=== PATIENT | female | born 1980 | race Caucasian/White ===

== ENCOUNTER 2016-10-12 19:28 | Emergency (ER) | payer OTHER, BC ==
[~2016-10-12 19:28] MED LIST: HYDR10TA2 PO; MOME17SP NS; MONT10TA6 PO
[2016-10-12 19:54] VITALS: BP 110/60
[2016-10-12] MEDS ORDERED: ORPH100T PO (20:31)
[2016-10-12] MEDS ORDERED: NAPR550T PO (20:31)
[2016-10-12] MEDS ORDERED: HYDR-971 PO (20:31)
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
== END 2016-10-12 20:50 | disposition home or self-care (01) ==
LOC: ER 19:28
DX: S16.1XXA Strain of muscle, fascia and tendon at neck level, initial encounter (principal); S39.012A Strain of muscle, fascia and tendon of lower back, initial encounter; S46.911A Strain of unspecified muscle, fascia and tendon at shoulder and upper arm level, right arm, initial encounter; Z88.1 Allergy status to other antibiotic agents; Z88.8 Allergy status to other drugs, medicaments and biological substances; V49.9XXA Car occupant (driver) (passenger) injured in unspecified traffic accident, initial encounter; Y92.413 State road as the place of occurrence of the external cause; Y93.89 Activity, other specified; Y99.8 Other external cause status
CPT/HCPCS: 99283

== ENCOUNTER → 2017-01-21 | Outpatient (CLI) | payer BC ==
[~2017-01-21] MED LIST changes: +HYDR-971 PO; +NAPR550T PO; +ORPH100T PO
--- NOTE | 2017-01-21 13:32 | KCIC ---
MR of the right knee Indication: Acute pain for over 2 weeks. Medial pain and tenderness. No known injury. Technique: The standard multiplanar sequences are obtained. Findings: Medial meniscus: Mild signal in the posterior horn with mild undersurface violation on sagittal slices compatible with tear. Lateral meniscus: Intact. Anterior cruciate ligament: Intact Posterior cruciate ligament: Intact Medial collateral ligament: Mild proximal scarring. Iliotibial band: Intact. Posterolateral structures: Fibular collateral ligament, biceps tendon and popliteus tendon are intact. Extensor mechanism: Intact. Fluid: Small Schmitz's cyst. Trace joint fluid. Articular cartilage -patellofemoral joint: Moderate chondromalacia, particularly at the medial patella. -medial compartment: No acute defect. -lateral compartment: No acute defects. Bones: No significant lesion or acute fracture. Soft tissue: Unremarkable Impression: 1. Medial meniscal tear. 2. Chondromalacia at the patella. Electronically signed by: Chapincito Narayanan MD (01/21/2017 1:29 PM)
== END | disposition home or self-care (01) ==
LOC: KCIC MRI 12:11
PROVIDERS: ATTEND Family Medicine
DX: S83.241A Other tear of medial meniscus, current injury, right knee, initial encounter (principal); M94.261 Chondromalacia, right knee; M71.21 Synovial cyst of popliteal space [Baker], right knee; X58.XXXA Exposure to other specified factors, initial encounter; Y93.89 Activity, other specified; Y92.89 Other specified places as the place of occurrence of the external cause; Y99.8 Other external cause status
CPT/HCPCS: 73721

== ENCOUNTER → 2018-11-06 | Outpatient (CLI) | payer BC ==
[2017-02-19 10:15] VITALS: BP 85/43
[~2018-11-06] MED LIST changes: +BREO ELLIPTA 21 EACH IH; +CETI10TA22 PO; +CYCL10TA2 PO; +DICL75TA PO; +DOCU-109 PO; +DOXY100T PO; +FLUT16SP NS; +HYDR-2765 PO; +HYDR-3164 PO; -HYDR-971 PO; +MONT10TA9 PO; +NAPR-514 PO; +NAPR-682 PO; -NAPR550T PO; +ONDA4TAB10 SL; +OXYC10TA PO; +PROAIR RESPICL90 MCG IH; +SERT50TA PO; +TRIA10.8 NS; +VENTOLIN HFA18 GM INH
--- NOTE | 2018-11-06 15:10 | KCIC ---
Examination: MRI of the left knee without contrast HISTORY: History of left knee pain COMPARISON: None available FINDINGS: The anterior cruciate ligament, posterior cruciate ligament appear intact. There is horizontal increased signal likely horizontal cleavage tear of the body and posterior horn of the medial meniscus with the tear extending to the inferior articular surface of the posterior horn of the medial meniscus. There is a tiny meniscal cyst identified medial and inferior to the medial meniscus measuring 3 mm. The lateral meniscus appears intact. The medial collateral ligament is intact. The lateral collateral ligamentous complex including the fibular collateral ligament, biceps femoris tendon, popliteus tendon appear intact. The extensor mechanism is intact. The medial retinaculum, lateral retinaculum appear intact. Small knee joint effusion is identified. There is a small popliteal cyst. Minimal superficial fraying of cartilage in the medial, lateral, patellofemoral compartments. IMPRESSION: 1. Medial meniscal tear. 2. Small knee joint effusion with a small popliteal cyst. 3. Grade I chondromalacia medial, lateral, patellofemoral compartments. Electronically signed by: Sunny Wick MD (11/06/2018 3:07 PM) [facility]
== END | disposition home or self-care (01) ==
LOC: KCIC MRI 12:47
PROVIDERS: ATTEND Family Medicine
DX: S83.242A Other tear of medial meniscus, current injury, left knee, initial encounter (principal); M25.462 Effusion, left knee; M71.22 Synovial cyst of popliteal space [Baker], left knee; M22.42 Chondromalacia patellae, left knee; X58.XXXA Exposure to other specified factors, initial encounter; Y93.89 Activity, other specified; Y92.89 Other specified places as the place of occurrence of the external cause; Y99.8 Other external cause status
CPT/HCPCS: 73721

== ENCOUNTER 2018-12-14 08:50 | Day surgery (SDC) | payer BC ==
[~2018-12-14] VITALS: Ht 156.2 cm; Wt 68.9 kg
[~2018-12-14 08:50] MED LIST changes: -HYDR-2765 PO; +HYDROmorphone 2 MG/ML VIAL IV PRN; +IV RINGERS,LACTATED 1000ML 1,000 ML IV SCH; +LIDOCAINE 1% PF 2 ML VIAL. ID PRN; +MORPHINE SULFATE 2 MG/ML VIAL. IV PRN; +ONDANSETRON PF 4 MG/2 ML VIAL. IV PRN; +PROCHLORPERAZINE 10 MG/2 ML VIAL. IV PRN; +fentaNYL PF VIAL 100 MCG/2 ML VIAL IV PRN
[2018-12-14] MEDS ORDERED: EPINEPHrine VIAL 30 MG/30 ML VIAL ONE (08:51)
[2018-12-14] MEDS ORDERED: BUPIVACAINE MPF 0.5% 30 ML VIAL. ONE (08:52)
[2018-12-14] MEDS ORDERED: LIDOCAINE 1% PF 30 ML VIAL. ONE (08:52)
[2018-12-14] MEDS ORDERED: fentaNYL PF VIAL 100 MCG/2 ML VIAL ONE (08:54)
[2018-12-14] MEDS ORDERED: DEXAMETHASONE SOD PHOS 4 MG/ML VIAL ONE ×3 (08:54→10:09)
[2018-12-14] MEDS ORDERED: KETOROLAC 30 MG/ML INJ FOR OR. INJ ONE (08:54)
[2018-12-14] MEDS ORDERED: MIDAZOLAM HCL/PF 2 MG/2 ML VIAL. ONE (08:54)
[2018-12-14] MEDS ORDERED: FAMOTIDINE 20 MG/2 ML VIAL ONE (08:54)
[2018-12-14] MEDS ORDERED: PROPOFOL 20 ML IV ONE (08:54)
[2018-12-14] MEDS ORDERED: ONDANSETRON PF 4 MG/2 ML VIAL. ONE (08:54)
[2018-12-14] MEDS ORDERED: LIDOCAINE 2% PF 5 ML VIAL. ONE (08:54)
--- NOTE | 2018-12-14 09:25 | DISCH ---
DISCHARGE INSTRUCTIONS Condition on Discharge Condition on Discharge: Stable Activity After Discharge Activity Instructions for Disc: Activity as tolerated Bathing Instructions: Shower-keep dressing dry Weight Bearing Status after Di: As tolerated Diet after Discharge Diet after Discharge: Regular Wound Incision Care Wound/Incision Care: Ice to area for comfort, Keep wound/cast CDI, Change dressing Contacting the DRLuci after DC Call your doctor for: Concerns you may have Follow-Up Follow up with: Nicole in 2 wks ROMAIN BENITEZ II, MD December 14, 2018 09:25
[2018-12-14 09:51] LABS: U PREG PATIENT NEGATIVE (NEG)
[2018-12-14] MEDS ORDERED: GLYCOPYRROLATE 1 MG/5 ML VIAL. ONE (10:24)
[2018-12-14] MEDS ORDERED: diphenhydrAMINE 50 MG/ML VIAL ONE (10:28)
[2018-12-14] MEDS ORDERED: SEVOFLURANE 31 TO 60 MINUTES. IH ONE (10:41)
--- NOTE | 2018-12-14 10:57 | PDOC4 ---
Operative Note Operative Note Date of procedure: 12/14/18 Surgeon: Cristhian Acevedo.: Rock Austin APRN Preoperative diagnosis: left knee medial meniscal tear Postoperative diagnosis: left knee medial meniscal tear Procedure performed: left knee arthroscopy, partial medial meniscectomy Anesthesia: Gen. Tourniquet Time: 30 min Blood loss: 5mL Findings:#1 unremarkable cartilage at patellofemoral articulation #2 cartilage was without pathology and medial compartment #3 complex white zone medial meniscus tear at posterior body #4 intact cruciate ligaments #5 No loose bodies #6 Normal cartilage at lateral femoral condyle, cartilage was soft but intact at lateral tibial plateau, lateral meniscus was without pathology Reason for procedure: Patient is very pleasant individual who had seen and evaluated in my outpatient orthopedic surgery clinic for complaints of medial knee pain that had failed conservative therapies. Clinical and radiographic examination was consistent with the preoperative diagnosis and we had a discussion of the risks, benefits, and alternatives to the above surgery and the patient wished to proceed. Description of procedure: Patient was greeted in the preoperative holding area by myself for the correct extremity was verified and marked. There were taken back to the operative suite, antibiotic started as they were brought back. Once in the operating room, the patient was transferred gently supine to the operative room table and secured the bed with all pressure points padded and underwent successful induction of a general anesthetic. After this, we applied a nonsterile tourniquet to the operative thigh and taped in place. A padded bump was secured to bed laterally at the hip and a padded rest across the foot of the bed to maintain the knee at 90 passively. Examination under anesthesia demonstrated a knee that was stable to varus and valgus in extension and 30 of flexion and had full range of motion. After this, the operative extremity was prepped and draped in our usual sterile fashion and we conducted our standard preoperative timeout. I palpated and marked surface anatomy and sergio lines my planned anterolateral and anteromedial portals. The extremity was exsanguinated with an Esmarch and tourniquet insufflated to 250 mmHg. I then incised skin for my anterolateral arthroscopic portal and introduced the blunt arthroscopic trocar into the suprapatellar pouch followed by the camera. I conducted my diagnostic arthroscopy with above noted findings and upon entering the medial compartment used a spinal needle to localize the anteromedial portal. I incised skin in accordance with this and dilated this well. I introduce my probe and continued on with my diagnostic arthroscopy. I took down a little bit of the ligamentum anteriorly for visualization. I then inspected the lateral compartment of the [id number] position. After this, I redirected my attention to the medial compartment and using combination of shaver and arthroscopic biter I trimmed the meniscus tear back to stable edges. I then inspected the medial and lateral gutters and lateral compartment again to ensure I did not leave any loose debris behind. After this, I placed the camera and shaver into the suprapatellar pouch and performed repeated aspiration maneuvers with vigorous palpation posteriorly to help ensure I removed any loose debris. I then removed all excess arthroscopic fluid and the arthroscopic instrumentation. Local anesthetic was injected around the periportal incisional areas. Skin was closed with simple interrupted 3-0 nylon. Xeroform, gauze, and ABD Sof-Rol and Robert wrap were then applied to the patients left lower leg and knee. She tolerated surgery well. No complications. At the conclusion of the surgery, she was awakened from anesthesia and transferred gently supine to the recovery room cart and taken to PACU in a stable and extubated condition. Postoperative plan is to discharge her home, she can weight-bear as tolerated. Wound care was discussed with her and her significant other as well as given and written form. I will see her back in 2 weeks, sooner should a problem arise. CRISTHIAN BENITEZ II, MD December 14, 2018 10:57
[2018-12-14] MEDS: fentaNYL PF VIAL 100 MCG/2 ML VIAL IV PRN ×3 (11:09→11:48)
[2018-12-14] MEDS ORDERED: HYDR-2765 PO (11:31)
[2018-12-14] MEDS ORDERED: HYDROcodone/APAP 7.5/325MG 1 TAB TABLET PO ONE (12:00)
[2018-12-14 12:20] VITALS: BP 109/57
== END 2018-12-14 12:50 | disposition home or self-care (01) ==
LOC: SURG 08:50
PROVIDERS: ATTEND Orthopaedic Surgery Sports Medicine
DX: S83.232A Complex tear of medial meniscus, current injury, left knee, initial encounter (principal); F32.9 Major depressive disorder, single episode, unspecified; J45.909 Unspecified asthma, uncomplicated; X58.XXXA Exposure to other specified factors, initial encounter; Y93.89 Activity, other specified; Y92.89 Other specified places as the place of occurrence of the external cause; Y99.8 Other external cause status; Z98.890 Other specified postprocedural states; Z98.51 Tubal ligation status; Z88.1 Allergy status to other antibiotic agents; Z88.8 Allergy status to other drugs, medicaments and biological substances
CPT/HCPCS: 29881; 81025; A7015; C1782; J0171; J0690; J0780; J1100; J1200; J1885; J2001; J2250; J2405; J2704; J3010; J3490; J7120

== ENCOUNTER 2019-07-30 19:35 | Emergency (ER) | payer BC ==
[~2019-07-30] VITALS: Ht 157.5 cm; Wt 70.3 kg
[~2019-07-30 19:35] MED LIST changes: -CETI10TA22 PO; +CETI10TA24 PO; +HYDR-2765 PO; -HYDROmorphone 2 MG/ML VIAL IV PRN; -IV RINGERS,LACTATED 1000ML 1,000 ML IV SCH; -LIDOCAINE 1% PF 2 ML VIAL. ID PRN; +MONT10TA49 PO; -MONT10TA6 PO; -MONT10TA9 PO; -MORPHINE SULFATE 2 MG/ML VIAL. IV PRN; -ONDANSETRON PF 4 MG/2 ML VIAL. IV PRN; -PROCHLORPERAZINE 10 MG/2 ML VIAL. IV PRN; -fentaNYL PF VIAL 100 MCG/2 ML VIAL IV PRN
--- NOTE | 2019-07-30 20:37 | PHYS DOC ---
Past Medical History Past Medical History: Asthma, Depression, Other Additional Past Medical Histor: seasonal allergies Past Surgical History: , Tubal ligation, Other Additional Past Surgical Histo: left foot, BILATERAL MENISCUS REPAIR Alcohol Use: None Drug Use: None Adult General Chief Complaint Chief Complaint: ABDOMINAL PAIN HPI HPI Patient is a 38 year old he male who presented to ER today for evaluation of lower abdominal pain started last night associated with nausea. Patient also complaint of pain with urination. Patient denies any chest pain, no fever. sHe denies any vaginal bleeding or discharge. All other ROS is negative unless otherwise noted in HPI Review of Systems Review of Systems See above Current Medications Current Medications Current Medications Medications (Trade) Dose Ordered Sig/Becky Start Time Stop Time Status Last Admin Dose Admin Ceftriaxone Sodium (Rocephin) 1 gm 1X ONCE 07/30/19 22:30 07/30/19 22:31 DC 07/30/19 22:27 1 GM Info (CONTRAST GIVEN -- Rx MONITORING) 1 each PRN DAILY PRN 07/30/19 21:15 08/01/19 21:14 Iohexol (Omnipaque 300 Mg/ml) 75 ml 1X ONCE 07/30/19 21:30 07/30/19 21:31 DC 07/30/19 21:33 75 ML Ondansetron HCl (Zofran) 4 mg 1X ONCE 07/30/19 20:45 07/30/19 20:46 DC 07/30/19 20:44 4 MG Sodium Chloride 1,000 ml @ 1,000 mls/hr 1X ONCE 07/30/19 20:45 07/30/19 21:44 DC 07/30/19 20:44 1,000 MLS/HR Allergies Allergies Allergies Coded Allergies Type Severity Reaction Last Updated Verified azithromycin Allergy Intermediate HIVES,DIARRHEA,NAUSEA 12/14/18 Yes citalopram Allergy Intermediate Hives 12/14/18 Yes Physical Exam Physical Exam See above Constitutional: Well developed, well nourished, no acute distress, non-toxic appearance. [] HENT: Normocephalic, atraumatic, bilateral external ears normal, oropharynx moist, no oral exudates, nose normal. [] Eyes: PERRLA, EOMI, conjunctiva normal, no discharge. [] Neck: Normal range of motion, no tenderness, supple, no stridor. [] Cardiovascular:Heart rate regular rhythm, no murmur [] Lungs & Thorax: Bilateral breath sounds clear to auscultation [] Abdomen: Bowel sounds normal, soft, there is tenderness at suprapubic area, no rebound tenderness, no masses, no pulsatile masses. [] Skin: Warm, dry, no erythema, no rash. [] Back: No tenderness, no CVA tenderness. [] Extremities: No tenderness, no cyanosis, no clubbing, ROM intact, no edema. [] Neurologic: Alert and oriented X 3, normal motor function, normal sensory function, no focal deficits noted. [] Psychologic: Affect normal, judgement normal, mood normal. [] Current Patient Data Vital Signs Vital Signs Date Time Temp Pulse Resp B/P (MAP) Pulse Ox O2 Delivery O2 Flow Rate FiO2 07/30/19 20:08 97.9 74 20 111/55 (73) 98 Room Air 97.9 Lab Values Laboratory Tests Test 07/30/19 19:40 07/30/19 20:41 Urine Collection Type Unknown Urine Color Yellow Urine Clarity Clear Urine pH 7.5 Urine Specific [place] 1.010 Urine Protein Negative mg/dL (NEG-TRACE) Urine Glucose (UA) Negative mg/dL (NEG) Urine Ketones (Stick) Negative mg/dL (NEG) Urine Blood Negative (NEG) Urine Nitrite Negative (NEG) Urine Bilirubin Negative (NEG) Urine Urobilinogen Dipstick 0.2 mg/dL (0.2 mg/dL) Urine Leukocyte Esterase Small (NEG) Urine RBC 0 /HPF (0-2) Urine WBC 5-10 /HPF (0-4) Urine Squamous Epithelial Cells Mod /LPF Urine Bacteria Few /HPF (0-FEW) Urine Mucus Slight /LPF Urine Test Negative (NEG) White Blood Count 7.8 x10^3/uL (4.0-11.0) Red Blood Count 4.22 x10^6/uL (3.50-5.40) Hemoglobin 11.8 g/dL (12.0-15.5) L Hematocrit 35.5 % (36.0-47.0) L Mean Corpuscular Volume 84 fL (79-100) Mean Corpuscular Hemoglobin 28 pg (25-35) Mean Corpuscular Hemoglobin Concent 33 g/dL (31-37) Red Cell Distribution Width 13.6 % (11.5-14.5) Platelet Count 180 x10^3/uL (140-400) Neutrophils (%) (Auto) 67 % (31-73) Lymphocytes (%) (Auto) 20 % (24-48) L Monocytes (%) (Auto) 13 % (0-9) H Eosinophils (%) (Auto) 0 % (0-3) Basophils (%) (Auto) 1 % (0-3) Neutrophils # (Auto) 5.2 x10^3/uL (1.8-7.7) Lymphocytes # (Auto) 1.5 x10^3/uL (1.0-4.8) Monocytes # (Auto) 1.0 x10^3/uL (0.0-1.1) Eosinophils # (Auto) 0.0 x10^3/uL (0.0-0.7) Basophils # (Auto) 0.1 x10^3/uL (0.0-0.2) Prothrombin Time 13.4 SEC (11.7-14.0) Prothrombin Time INR 1.1 (0.8-1.1) Activated Partial Thromboplast Time 28 SEC (24-38) Sodium Level 138 mmol/L (136-145) Potassium Level 3.7 mmol/L (3.5-5.1) Chloride Level 102 mmol/L (98-107) Carbon Dioxide Level 28 mmol/L (21-32) Anion Gap 8 (6-14) Blood Urea Nitrogen 10 mg/dL (7-20) Creatinine 0.7 mg/dL (0.6-1.0) Estimated GFR (Cockcroft-Gault) 94.2 BUN/Creatinine Ratio 14 (6-20) Glucose Level 87 mg/dL (70-99) Calcium Level 8.7 mg/dL (8.5-10.1) Total Bilirubin 0.4 mg/dL (0.2-1.0) Aspartate Amino Transferase (AST) 19 U/L (15-37) Alanine Aminotransferase (ALT) 26 U/L (14-59) Alkaline Phosphatase 69 U/L (46-116) Total Protein 7.3 g/dL (6.4-8.2) Albumin 3.5 g/dL (3.4-5.0) Albumin/Globulin Ratio 0.9 (1.0-1.7) L Lipase 154 U/L (73-393) Laboratory Tests 07/30/19 20:41 Laboratory Tests 07/30/19 20:41 EKG EKG [] Radiology/Procedures Radiology/Procedures [][facility] [address] [place] [address] IMAGING REPORT Signed PATIENT: MEENA VERDUZCOCCOUNT: [id number] : 1980 LOCATION: ER AGE: 38 SEX: F EXAM STATUS: REG ER ORD. PHYSICIAN: ZEHRA BROWNLEE DO REASON: lower abdominal pain since yesterday, OMNI 300, 75 ML IV PROCEDURE: CT ABD PELV W/ IV CONTRST ONLY CT SCAN OF THE ABDOMEN AND PELVIS WITH IV CONTRAST. History: Lower abdominal pain Comparison:None. Procedure: Contiguous axial images of the abdomen and pelvis were performed after the administration of 75 cc of Omni 300 IV contrast. Oral contrast: No. Findings: There is a 2.9 cm cyst in the right adnexa. The appendix is normal. The uterus is mildly retroverted. The colon is collapsed limiting its evaluation. Liver: Unremarkable Spleen: Unremarkable Pancreas: Unremarkable Adrenal Glands: Unremarkable Kidneys: Unremarkable There is no mass or lymphadenopathy. There is no free air. There is no free fluid. The urinary bladder appears normal. Impression: Small cyst the right adnexa is likely a right ovarian cyst. Recommend 2-3 month follow-up ultrasound. This interpretation assumes the patient is not . PQRS Compliance Statement: One or more of the following individualized dose reduction techniques were utilized for this examination: 1. Automated exposure control 2. Adjustment of the mA and/or kV according to patient size 3. Use of iterative reconstruction technique Electronically signed by: Mayuri Rivera III, MD (07/30/2019 9:44 PM) [facility] DICTATED and SIGNED BY: MAYURI RIVERA III, MD DATE: 07/30/192143 Course & Med Decision Making Course & Med Decision Making Pertinent Labs and Imaging studies reviewed. (See chart for details) [] Dragon Disclaimer Dragon Disclaimer This electronic medical record was generated, in whole or in part, using a voice recognition dictation system. Departure Departure Impression: Primary Impression: Abdominal pain Additional Impressions: UTI (urinary tract infection) Ovarian cyst Disposition: 01 HOME, SELF-CARE Condition: STABLE Referrals: YONATAN BLAKE MD (PCP) PLEASE FOLLOW UP WITH YOUR DOCTOR NEXT WEEK Patient Instructions: Abdominal Pain, Ovarian Cyst, Urinary Tract Infection Scripts Ciprofloxacin Hcl (CIPRO) 500 Mg Tablet 1 TAB PO BID for 7 Days, #14 TAB 0 Refills Prov: ZEHRA BROWNLEE DO 07/30/19 Problem Qualifiers ZEHRA BROWNLEE DO Jul 30, 2019 20:37
[2019-07-30 20:43] LABS: BILIRUBIN,URINE NEGATIVE (NEG); CLARITY,URINE CLEAR; COLOR,URINE YELLOW; NITRITE,URINE NEGATIVE (NEG); PH,URINE 7.5; PROTEIN,URINE NEGATIVE (NEG-TRACE); UROBILINOGEN,URINE 0.2 mg/dL (0.2 mg/dL)
[2019-07-30] MEDS ORDERED: IV NORMAL SALINE 1000ML BAG 1,000 ML IV ONE (20:45)
[2019-07-30] MEDS ORDERED: ONDANSETRON PF 4 MG/2 ML VIAL. IV ONE (20:45)
[2019-07-30 20:48] LABS: BASO # 0.1 x10^3/uL (0.0-0.2); BASO % 1 % (0-3); EOS % 0 % (0-3); HEMATOCRIT 35.5 % (36.0-47.0); HEMOGLOBIN 11.8 g/dL (12.0-15.5); LYMPH # 1.5 x10^3/uL (1.0-4.8); LYMPH % 20 % (24-48); MEAN CORPUSCULAR HEMOGLOBIN 28 pg (25-35); MEAN CORPUSCULAR HGB CONC 33 g/dL (31-37); MEAN CORPUSCULAR VOLUME 84 fL (79-100); MONO % 13 % (0-9); NEUT # 5.2 x10^3/uL (1.8-7.7); NEUT % 67 % (31-73); PLATELET COUNT 180 x10^3/uL (140-400); RED BLOOD COUNT 4.22 x10^6/uL (3.50-5.40); RED CELL DISTRIBUTION WIDTH 13.6 % (11.5-14.5); WHITE BLOOD COUNT 7.8 x10^3/uL (4.0-11.0)
[2019-07-30 20:48] LABS: BACTERIA,URINE FEW /HPF (0-FEW); RBC,URINE 0 /HPF (0-2); SQUAMOUS EPITHELIAL CELL,UR MOD /LPF
[2019-07-30 20:57] LABS: PROTHROMBIN TIME PATIENT 13.4 SEC (11.7-14.0)
[2019-07-30 21:00] LABS: CALCIUM 8.7 mg/dL (8.5-10.1); CREATININE 0.7 mg/dL (0.6-1.0); GFR 94.2; POTASSIUM 3.7 mmol/L (3.5-5.1)
[2019-07-30 21:07] LABS: ALBUMIN 3.5 g/dL (3.4-5.0); ALBUMIN/GLOBULIN RATIO 0.9 (1.0-1.7); TOTAL BILIRUBIN 0.4 mg/dL (0.2-1.0); TOTAL PROTEIN 7.3 g/dL (6.4-8.2)
[2019-07-30 21:08] LABS: U PREG PATIENT NEGATIVE (NEG)
[2019-07-30] MEDS ORDERED: CONTRAST GIVEN. MC PRN (21:15)
[2019-07-30] MEDS ORDERED: IOHEXOL 300 MG/ML 100ML VIAL. IV ONE (21:30)
--- NOTE | 2019-07-30 21:47 | RAD ---
CT SCAN OF THE ABDOMEN AND PELVIS WITH IV CONTRAST. History: Lower abdominal pain Comparison:None. Procedure: Contiguous axial images of the abdomen and pelvis were performed after the administration of 75 cc of Omni 300 IV contrast. Oral contrast: No. Findings: There is a 2.9 cm cyst in the right adnexa. The appendix is normal. The uterus is mildly retroverted. The colon is collapsed limiting its evaluation. Liver: Unremarkable Spleen: Unremarkable Pancreas: Unremarkable Adrenal Glands: Unremarkable Kidneys: Unremarkable There is no mass or lymphadenopathy. There is no free air. There is no free fluid. The urinary bladder appears normal. Impression: Small cyst the right adnexa is likely a right ovarian cyst. Recommend 2-3 month follow-up ultrasound. This interpretation assumes the patient is not . PQRS Compliance Statement: One or more of the following individualized dose reduction techniques were utilized for this examination: 1. Automated exposure control 2. Adjustment of the mA and/or kV according to patient size 3. Use of iterative reconstruction technique Electronically signed by: Silviano Rivera III, MD (07/30/2019 9:44 PM) [facility]
[2019-07-30 22:25] VITALS: BP 112/61
[2019-07-30] MEDS ORDERED: cefTRIAXone IV Push 1 GM VIAL. IVP ONE (22:30)
[2019-07-30] MEDS ORDERED: CIPR500T94 PO (22:49)
== END 2019-07-30 23:01 | disposition home or self-care (01) ==
LOC: ER 19:35
DX: N39.0 Urinary tract infection, site not specified (principal); R11.2 Nausea with vomiting, unspecified; R10.30 Lower abdominal pain, unspecified; N83.201 Unspecified ovarian cyst, right side; J45.909 Unspecified asthma, uncomplicated; Z98.51 Tubal ligation status; Z88.1 Allergy status to other antibiotic agents; Z88.8 Allergy status to other drugs, medicaments and biological substances
CPT/HCPCS: 36415; 74177; 80053; 81001; 81025; 83690; 85025; 85610; 85730; 87086; 96361; 96374; 96375; 99285; J0696; J2405; J7030; Q9967

== ENCOUNTER → 2019-08-30 | Outpatient (CLI) | payer BC ==
[~2019-08-30] MED LIST changes: +CIPR500T94 PO
--- NOTE | 2019-08-30 13:00 | KCIC ---
EXAM: Pelvic Ultrasound Complete INDICATION: Right ovarian cyst. Follow-up abnormal findings on CT ? TECHNIQUE: Real-time ultrasound of the pelvis with permanent freeze-frame documentation. COMPARISON:?None. ? FINDINGS: ? UTERUS:?Uterus is retroverted and measures 7.1 x 4.3 x 4.7 cm.? Endometrial thickness is 0.7 cm. No uterine or endometrial abnormality. ? RIGHT OVARY/ADNEXA: Right ovary measures 3.7 x 2.8 x 3.0 cm.? Unremarkable. Normal ovarian blood flow. LEFT OVARY/ADNEXA:?Left ovary is not well seen.? OTHER:?No evidence of significant pelvic free fluid. ? IMPRESSION: ? The dominant right ovarian cyst has since resolved. There is no evidence of right ovarian torsion. The left ovaries not well seen. The pelvic ultrasound is otherwise unremarkable. Electronically signed by: Michelle Clarke MD (08/30/2019 12:56 PM) [facility]
== END | disposition home or self-care (01) ==
LOC: KCIC US 09:33
PROVIDERS: ATTEND Family Medicine
DX: N85.4 Malposition of uterus (principal); N32.1 Vesicointestinal fistula
CPT/HCPCS: 76830; 76856

== ENCOUNTER → 2020-08-01 | Outpatient (CLI) | payer BC ==
[~2020-08-01] MED LIST changes: +ASPI325T8 PO; -CETI10TA24 PO; +CETI10TA74 PO; +CYCL5TAB PO; +LEVO5TAB29 PO; +PROM25TA10 PO
--- NOTE | 2020-08-01 15:51 | KCIC ---
EXAM: Right elbow, 3 views. HISTORY: Epicondylitis. COMPARISON: None. FINDINGS: 3 views of the right elbow are obtained. There is no fracture, dislocation or subluxation. There is no effusion. IMPRESSION: No acute osseous finding. Electronically signed by: Ester Montez MD (08/01/2020 3:49 PM) [id number]
== END ==
LOC: KCIC 15:22
PROVIDERS: ATTEND Family Medicine
DX: M77.11 Lateral epicondylitis, right elbow (principal)
CPT/HCPCS: 73080

== ENCOUNTER → 2020-09-26 | Outpatient (CLI) | payer BC ==
[~2020-09-26] MED LIST changes: -ASPI325T8 PO; -PROM25TA10 PO
== END ==
LOC: LAB 11:39
PROVIDERS: ATTEND Orthopaedic Surgery
DX: Z01.812 Encounter for preprocedural laboratory examination (principal); Z20.822 Contact with and (suspected) exposure to COVID-19
CPT/HCPCS: U0003

== ENCOUNTER 2020-09-29 12:11 | Day surgery (SDC) | payer BC ==
[~2020-09-29] VITALS: Ht 154.9 cm; Wt 73.9 kg
[~2020-09-29 12:11] MED LIST changes: +HYDROmorphone 2 MG/ML VIAL IVP PRN; +IV RINGERS,LACTATED 1000ML 1,000 ML IV SCH; +PROCHLORPERAZINE 10 MG/2 ML VIAL. IVP PRN; +fentaNYL PF VIAL 100 MCG/2 ML VIAL IVP PRN
[2020-09-29] MEDS ORDERED: fentaNYL PF VIAL 100 MCG/2 ML VIAL ONE ×2 (13:15→15:04)
[2020-09-29] MEDS ORDERED: MIDAZOLAM HCL/PF 2 MG/2 ML VIAL. ONE (13:27)
[2020-09-29] MEDS ORDERED: LIDOCAINE 2% PF 5 ML VIAL. ONE (13:34)
[2020-09-29] MEDS ORDERED: PROPOFOL 10 MG/ML (20ML) VIAL. IV ONE (13:34)
[2020-09-29] MEDS ORDERED: BUPIVACAINE-EPI 0.25% 30 ML VIAL KIT. ONE ×2 (13:42→13:45)
[2020-09-29] MEDS ORDERED: EPINEPHrine VIAL 30 MG/30 ML VIAL ONE (13:42)
[2020-09-29] MEDS ORDERED: ONDANSETRON PF 4 MG/2 ML VIAL. ONE (14:01)
[2020-09-29] MEDS ORDERED: DEXAMETHASONE SOD PHOS 4 MG/ML VIAL ONE (14:01)
[2020-09-29] MEDS ORDERED: KETAMINE HCL IN NACL, ISO-OSM 50 MG/5 ML SYRINGE ONE (14:14)
--- NOTE | 2020-09-29 15:01 | PDOC4 ---
Operative Note Operative Note Date of Procedure: September 29, 2020 Preoperative Diagnosis: left knee medial meniscus tear Postoperative Diagnosis: complex tear of medial meniscus, current injury, left knee, initial encounter S83.232A Procedures Performed: left knee arthroscopy, surgical, with meniscectomy, MEDIAL, including meniscal shaving, including debridement/shaving of articular cartilage (chondroplasty) CPT 79791 Surgeon: Mayuri Salguero MD Quilting Machine Operator: CARL Fagan Anesthesia: General Estimated Blood Loss: 5 mL Specimens: none Drains: none Complications: none Tourniquet time: 26 minutes at 300 mm Hg Indications for Procedure: The patient is a 39-year-old with left knee pain, unrelieved with nonoperative treatment. She has a history of a prior meniscectomy of this same knee about 2 years ago. Despite that, herexam and MRI are consistent with a large horizontal medial meniscus tear which is an unrepairable pattern. We talked about the risks and benefits of proceeding with an arthroscopic procedure and a medial meniscectomy. We talked about potential risks of ongoing pain, progressive arthritis, bleeding, infection, blood clots, or other potential surgical or anesthetic complications. All of the patient's questions about surgery were answered and they desired to proceed. Written consent was obtained. Description of Operation: The patient was identified in the preoperative holding area. The correct left knee was marked by me. The patient was taken to the operating room, where a general anesthetic was used. Preoperative antibiotics were given intravenously. A time-out procedure was performed. A tourniquet was placed on the upper thigh. Local anesthetic 20 mL of 0.25% bupivacaine was injected using sterile technique into the knee joint. The limb was prepared circumferentially with ChloraPrep solution and sterile waterproof arthroscopy drapes were applied. The limb was exsanguinated with an Esmarch bandage and the tourniquet was inflated. Lateral and medial arthroscopy portals were established. The posterior horn of the medial meniscus showed a large and extensive primarily horizontal but also a complex tear. There was evidence of prior meniscectomy along the posterior one third of the meniscus but somewhat conservative resection. The current tear extends horizontally and in a complex fashion throughout the entire posterior one third of the meniscus. There is softening and degeneration into the middle one third of the meniscus anterior to the prior meniscectomy. Fortunately the femoral cartilage is nearly pristine on the medial femur and tibia with only slight areas of superficial softening and fibrillation of both the femur and tibia. I performed a more extensive meniscectomy then was performed previously, removing most of the posterior one third of the medial meniscus which was softened, degenerative and torn, and I tapered the resection into the middle one third of the meniscus removing soft degenerative meniscus back to a firm stable base. The medial tibiofemoral joint showed chondromalacia Outerbridge grade I, so no chondroplasty was required. The intercondylar notch was free of loose bodies, and the ACL was intact. The lateral tibiofemoral joint showed a normal lateral meniscus, so no lateral meniscectomy was required.The lateral articular surfaces showed normal articular surfaces so no chondroplasty was required. The patellofemoral joint showed normal articular surfaces so no chondroplasty was required. The suprapatellar pouch, medial and lateral gutters were free of loose bodies. Copious irrigation was used to drain all meniscal and chondral fragments, and the knee was drained of fluid. The portals were closed with #3-0 Prolene interrupted sutures. Additional local anesthetic, 30 mL of 0.25% bupivacaine with epinephrine was injected. A bulky sterile dressing was applied and the tourniquet was released. Needle and sponge counts were correct and there were no apparent complications. MAYURI SALGUERO MD Sep 29, 2020 15:01
[2020-09-29] MEDS: fentaNYL PF VIAL 100 MCG/2 ML VIAL IVP PRN ×2 (15:07→15:14)
[2020-09-29] MEDS ORDERED: MORPHINE SULFATE 2 MG/ML VIAL. ONE ×2 (15:24→15:48)
[2020-09-29] MEDS: MORPHINE SULFATE 2 MG/ML VIAL. IVP PRN ×4 (15:28→15:57)
[2020-09-29] MEDS ORDERED: ASPI325T8 PO (15:36)
[2020-09-29] MEDS ORDERED: PROM25TA10 PO (15:36)
[2020-09-29] MEDS ORDERED: HYDROcodone/APAP 7.5/325MG 1 TAB TABLET PO ONE (15:45)
[2020-09-29 16:20] VITALS: BP 114/47
== END 2020-09-29 17:15 | disposition home or self-care (01) ==
LOC: SURG 12:11
PROVIDERS: ATTEND Orthopaedic Surgery
DX: S83.232A Complex tear of medial meniscus, current injury, left knee, initial encounter (principal); J45.909 Unspecified asthma, uncomplicated; F32.9 Major depressive disorder, single episode, unspecified; Z98.890 Other specified postprocedural states; Z79.899 Other long term (current) drug therapy; Z79.82 Long term (current) use of aspirin; Z88.1 Allergy status to other antibiotic agents; Z88.8 Allergy status to other drugs, medicaments and biological substances; Z72.89 Other problems related to lifestyle; X58.XXXA Exposure to other specified factors, initial encounter; Y93.89 Activity, other specified; Y92.89 Other specified places as the place of occurrence of the external cause; Y99.8 Other external cause status
CPT/HCPCS: 29881; 81025; 97110; 97116; 97162; A4930; J0171; J0690; J1100; J2250; J2270; J2405; J2704; J3010

== ENCOUNTER 2021-03-18 13:28 | Emergency (ER) | payer BC ==
[~2021-03-18] VITALS: Ht 157.5 cm; Wt 72.0 kg
[~2021-03-18 13:28] MED LIST changes: +ASPI325T8 PO; -HYDROmorphone 2 MG/ML VIAL IVP PRN; -IV RINGERS,LACTATED 1000ML 1,000 ML IV SCH; -PROCHLORPERAZINE 10 MG/2 ML VIAL. IVP PRN; +PROM25TA10 PO; -fentaNYL PF VIAL 100 MCG/2 ML VIAL IVP PRN
[2021-03-18 16:22] VITALS: BP 109/73
[2021-03-18] MEDS ORDERED: LIDO1ADH78 TP (17:00)
[2021-03-18] MEDS ORDERED: METH-561 PO (17:00)
--- NOTE | 2021-03-18 17:01 | PHYS DOC ---
Past Medical History Past Medical History: Asthma, Depression, Other Additional Past Medical Histor: seasonal allergies, scoliosis Past Surgical History: , Tubal ligation, Other Additional Past Surgical Histo: left foot, BILATERAL MENISCUS REPAIR Smoking Status: Never Smoker Alcohol Use: None Drug Use: None General Adult EDM: Chief Complaint: BACK PAIN - NO INJURY HPI: HPI: 40-year-old female with no significant past medical history presents the ED with complaints of "I'm pretty sure it's my sciatica, I have had it before." Patient reports left-sided low back pain over her left SI joint that radiates down past her knee along the posterior aspect of her leg. Symptoms are worsened left leg and hip movement. Has taken Flexeril in the past for this with minimal relief. Also reports she had surgery over her left ankle "years ago" butt he past week, has had some swelling along the prior surgical site of her left medial ankle. States she just recently started a new job at [employer] and is on her feet a lot more than she is used to. Cannot recall any particular exacerbating movements or blood trauma that may have caused the back pain or foot swelling. Has seen a chiropractor in the past for her left-sided sciatica. Is not on any control. No history of blood clots. Denies any recent hospitalizations, surgery, cancer, or prolonged travel. Review of Systems: Review of Systems: Constitutional: Denies fever or chills. [] Eyes: Denies change in visual acuity. [] HENT: Denies nasal congestion or sore throat. [] Respiratory: Denies cough or shortness of breath. [] Cardiovascular: Denies chest pain or edema. [] GI: Denies nausea, vomiting, : Denies dysuria or hematuria Musculoskeletal: Denies joint erythema/warmth or saddle anesthesia Integument: Denies rash or diaphoresis Neurologic: Denies headache, focal weakness or sensory changes. [] Endocrine: Denies polyuria or polydipsia. [] Lymphatic: Denies swollen glands. [] Psychiatric: Denies depression or anxiety. [] Heart Score: C/O Chest Pain: No Risk Factors: Risk Factors: DM, Current or recent (<one month) smoker, HTN, HLP, family history of CAD, obesity. Risk Scores: Score 0 - 3: 2.5% MACE over next 6 weeks - Discharge Home Score 4 - 6: 20.3% MACE over next 6 weeks - Admit for Clinical Observation Score 7 - 10: 72.7% MACE over next 6 weeks - Early Invasive Strategies Allergies: Allergies: Allergies Coded Allergies Type Severity Reaction Last Updated Verified azithromycin Allergy Intermediate HIVES,DIARRHEA,NAUSEA 09/29/20 Yes citalopram Allergy Intermediate Hives 09/29/20 Yes Physical Exam: PE: Constitutional: Well developed, well nourished, no acute distress, non-toxic appearance. HENT: Normocephalic, atraumatic, Eyes: EOMI, conjunctiva normal, no discharge. Neck: Normal range of motion, supple, Cardiovascular: S1/2 present, regular rhythm Lungs & Thorax: Speaking in full sentences, bilateral equal chest rise, no tachypnea or increased work of breathing Abdomen: soft, no tenderness, Skin: Warm, dry, no erythema, no rash. [] Back: No midline tenderness, no CVA tenderness, nonreproducible left SI back pain and left buttock pain worsened with left straight leg Extremities: No tenderness, no cyanosis, very minimal swelling over right medial ankle surrounding 5 mm curved insicion site, no swelling at the ankle joint or tarsometatarsal joints, intact left DP/PT pulse, L5-S1 sensation intact, no calf swelling-equal calf sizes Neurologic: Alert and oriented X 3, normal motor function, normal sensory function, no focal deficits noted-was able to bear weight without significant distress Psychologic: Affect normal, judgement normal, mood normal. [] Current Patient Data: Labs: Laboratory Tests Test 03/18/21 13:52 POC Urine HCG, Qualitative Hcg negative (Negative) Vital Signs: Vital Signs Date Time Temp Pulse Resp B/P (MAP) Pulse Ox O2 Delivery O2 Flow Rate FiO2 03/18/21 13:54 98.2 79 16 118/58 (69) 100 Room Air 98.2 EKG: EKG: [] Radiology/Procedures: Radiology/Procedures: [] Course & Med Decision Making: Course & Med Decision Making Pertinent Labs and Imaging studies reviewed. (See chart for details) Concern for exacerbation of left-sided sciatica and mild swelling over prior surgical site. I do suspect symptoms are related to patient's increase physical activity at work -would recommend low-salt diet and hydration. No indication for imaging at this time. Will discharge home with strict ED return precautions were given for joint swelling/fevers/warmth, calf swelling, fever or chills, saddle anesthesia or incontinence. Encouraged urgent outpatient follow-up with PMD and Ortho for reevaluation as needed. Life-threatening processes were considered but are low suspicion at this time, given history, physical exam and ED workup. Pt was educated on all prescription medications and adverse effects. All patient's questions were answered and pt was stable at time of discharge. Life/limb-threatening differential includes but is not limited to, trauma (fracture, dislocation, laceration, compartment syndrome, tendon or ligament injury), neurovascular injury or deficitcva/tia, infection (osteomyelitis, abscess, cellulitis, septic arthritis, necrotizing fasciitis), deep vein thrombosis, renal/cardiac/liver disease, medication adverse effect, lymphedema/anasarca, vascular insufficiency or malignancy, I have spoken with the patient and/or caregivers. I explained the patient's condition, diagnoses and treatment plan based on the information available to me at this time. I have answered the patient and/or caregiver's questions and ad dressed any concerns. The patient and/or caregivers have a good understanding of patient's diagnosis, condition and treatment plan as can be expected at this point. Vital signs have been stable. Patient's condition is stable and appropriate for discharge from the emergency department. Patient will pursue further outpatient evaluation with primary care physician or other designated or consulting physician as outlined in the discharge instructions. The patient and/or caregivers are agreeable to this plan of care and follow-up instructions have been explained in detail. The patient and/or caregivers have received these instructions in written form and have expressed an understanding of the discharge instructions. The patient and/or caregivers are aware that any significant change of condition or worsening of symptoms should prompt immediate return to this or the closest emergency department or call to 911. Lili Disclaimer: Lili Disclaimer: This electronic medical record was generated, in whole or in part, using a voice recognition dictation system. Departure Departure Impression: Primary Impression: Left sided sciatica Additional Impression: Swelling of left foot Disposition: HOME / SELF CARE / HOMELESS Condition: STABLE Referrals: YONATAN BLAKE MD (PCP) Follow-up with your primary care physician in 24 to 48 hours OR FOLLOW UP WITH FAMILY MEDICINE: [address] [facility] [place], [facility] [address] [place] [address] Patient Instructions: Peripheral Edema, Sciatica Additional Instructions: FOLLOW UP WITH ORTHOPEDICS: FOR DEFINITIVE MANAGEMENT Orthopaedic Surgery [address] [place], [address] [place] [address] EMERGENCY DEPARTMENT GENERAL DISCHARGE INSTRUCTIONS Thank you for coming to [facility] (ED) today and trusting us with you care. We trust that you had a positive experience in our Emergency Department. If you wish to speak to the department management, you may call the Director at [phone]. YOUR FOLLOW UP INSTRUCTIONS ARE FOLLOWS: 1. Do you have a private Doctor? If you do not have a private doctor, please ask for a resource list of physicians or clinics that may be able to assist you with follow up care. 2. The Emergency Physicain has interpreted your x-rays. The X-Ray specialist will also review them. If there is a change in the findings, you will be notified in 48 hours when at all possible. 3. A lab test or culture has been done, your results will be reviewed and you will be notified if you need a change in treatment. ADDITIONAL INSTRUCTIONS AND INFORMATION: 1. Your care today has been supervised by a physician who is specially trained in emergency care. Many problems require more than one evaluation for a complete diagnosis and treatment. We recommend that you schedule your follow up appointment as recommended to ensure complete treatment of you illness or injury. If you are unable to obtain follow up care and continue to have a problem, or if your condition worsens, we recommend that you return to the ED. 2. We are not able to safely determine your condition over the phone nor are we able to give sound medical advice over the phone. For these safety reasons, if you call for medical advice we will ask you to come to the ED for further evaluation. 3. If you have any questions regarding these discharge instructions please call the ED at [phone]. SAFETY INFORMATION: In the interest of safety, wellness, and injury prevention; we encourage you to wear your sealbelt, if you smoke; quite smoking, and we encourage family to use a protective helmet for bicycling and other sporting events that present an increased risk for head injury. IF YOUR SYMPTOMS WORSEN OR NEW SYMPTOMS DEVELOP, OR YOU HAVE CONCERNS ABOUT YOUR CONDITION; OR IF YOUR CONDITION WORSENS WHILE YOU ARE WAITING FOR YOUR FOLLOW UP APPOINTMENT; EITHER CONTACT YOUR PRIMARY CARE DOCTOR, THE PHYSICIAN WHOSE NAME AND NUMBER YOU WERE GIVEN, OR RETURN TO THE ED IMMEDIATELY. Scripts Methocarbamol (METHOCARBAMOL) 500 Mg Tablet 500 MG PO QID PRN for back pain, #20 TAB Prov: ESPERANZA THAKUR DO 03/18/21 Lidocaine (Lido Jerod) 1 Each Adh..patch 1 EACH TP DAILY for 5 Days, #5 PATCH Apply 1 patch for 12 hours, remove for another 12 hours. May repeat, 1 patch per day as instructed above. Prov: ESPERANZA THAKUR DO 03/18/21 ESPERANZA THAKUR DO Mar 18, 2021 17:01
== END 2021-03-18 17:05 | disposition home or self-care (01) ==
LOC: ER 13:28
DX: M54.42 Lumbago with sciatica, left side (principal); R22.42 Localized swelling, mass and lump, left lower limb; J45.909 Unspecified asthma, uncomplicated; Z98.51 Tubal ligation status; Z88.1 Allergy status to other antibiotic agents; Z88.8 Allergy status to other drugs, medicaments and biological substances
CPT/HCPCS: 81025; 99283

== ENCOUNTER → 2021-06-07 | Outpatient (CLI) | payer BC ==
[~2021-06-07] MED LIST changes: +CYCL10TA19 PO; -CYCL10TA2 PO; +IOHEXOL 180 MG/ML 10 ML VIAL. ONE; +LIDO1ADH78 TP; +METH-561 PO; +methylPREDNISolone ACETATE 40 MG/ML VIAL. ONE; +methylPREDNISolone ACETATE 80 MG/ML VIAL. ONE
--- NOTE | 2021-06-07 12:59 | PDOC1 ---
INITIAL PAIN CONSULT DATE OF SERVICE: DOS: DATE: 06/07/21 TIME: 12:54 CHIEF COMPLAINT: Chief Complaint: Low back and left lower extremity pain HISTORY OF PRESENT ILLNESS: 40-year-old female presents history of pain for about 7 months in the low back rating left lower extremity posterior gluteus posterior lateral thigh anterior thigh anteromedial thigh medial lower leg across the knee and into the lower leg and calf medially posteriorly and laterally patient reports not the result of any specific injury or accident that she is aware of is getting worse over time she is on her feet most of her working day which exacerbates the pain patient has had chiropractic treatment as well as doing exercises from that on her own which is not helping significantly with helped initially patient reports pain is getting worse with walking and standing especially standing for prolonged periods greater than 30 minutes to an hour patient scribes pain is constant sharp in the back stabbing in the back shooting in the leg with numbness and radiating pain in the leg as well patient reports no loss of motor function but significant fatigability of the left lower extremity with changing positions walking standing. Patient reports it wakes her from sleep least 2-3 times a night does not affect her bowel bladder control but does affect her ability to walk, she is not use any assistive device to ambulate. Patient did have an MRI scan of the lumbar spine showing disc space narrowing and disc desiccation at L2-3 and L3-4 bulging annulus at L4-5 with focal left foraminal disc fusion L2-3 left foraminal extraforaminal disc protrusion at L3-4 and focal central disc protrusion at L4-5. Patient rates her disability rating 0-10 10 being the worst is a 10 with family home responsibilities recreation social activity occupation sexual behavior and self-care and 9 with life support activities. PAST MEDICAL HISTORY: PMH: No major medical problems or conditions PREVIOUS SURGERIES: Past Surgical Hx: Meniscus repair on the left x2, tubal ligation, , right meniscus repair, left foot surgery CURRENT MEDICATIONS: Current Meds: Active Scripts Medications Dose Route/Sig Max Daily Dose Days Date Category Fluticasone Propionate Nasal Linden (Fluticasone Propionate) 16 Gm Linden.susp 2 Linden NS DAILY 06/07/21 Reported Montelukast Sodium Tablet (Montelukast Sodium) 10 Mg Tablet 10 Mg PO HS 06/07/21 Reported Xyzal (Levocetirizine Dihydrochloride) 5 Mg Tablet 5 Mg PO DAILY 09/26/20 Reported Breo Ellipta 200-25 Mcg INH (Fluticasone/Vilanterol) 1 Each Blst.w.dev 1 Puff IH DAILY 12/11/18 Reported Zoloft (Sertraline Hcl) 50 Mg Tablet 100 Mg PO DAILY 02/19/17 Reported ALLERGIES; Allergies: Coded Allergies: azithromycin (Verified Allergy, Intermediate, HIVES,DIARRHEA,NAUSEA, 09/29/20) citalopram (Verified Allergy, Intermediate, Hives, 09/29/20) FAMILY HISTORY: Family Hx: Diabetes, schizophrenia, bipolar disorder SOCIAL HISTORY: Social Hx: Patient does not abby alcohol does not smoke says any illegal illicit recreational drugs is lives with her spouse and 3 children, at home lives in [facility] and works at the [employer] REVIEW OF SYSTEMS: ROS: Positive for those items mentioned in history of present illness, all systems are reviewed, otherwise negative ,and are complete full and well-documented on patient's chart. PHYSICAL EXAM: VS: Blood pressures 117/70 pulse 75 respirations 18 temperature 98.1 F height 5 feet 2 inches weight is 176 pounds PE: PHYSICAL EXAMINATION: GENERAL: The patient is awake, alert, oriented, appropriate, very pleasant in demeanor HEENT: Shows normocephalic, atraumatic. Extraocular movements are intact and symmetrical. Oral cavity: Mucous membranes moist and pink. Dentition is inta ct. NECK: Shows anterior throat supple without palpable lymphadenopathy noted. Swallow reflex symmetrical. CHEST: Shows normal on inspection. Breath sounds are clear bilaterally, distant but no rales or. HEART: Shows S1, S2 clear. No murmurs auscultated. ABDOMEN: Soft, nontender, nondistended, obese. No palpable organomegaly is noted. No rebound or guarding demonstrated. BACK: Shows spine grossly in the midline. Normal-appearing cervical lordotic curvature. There is slightly increased thoracic kyphosis, some minor flattening of the lumbar lordotic curvature. Lumbar paraspinous muscles show symmetrical on inspection, on palpation shows some moderate tenderness diffusely throughout the upper, middle and lower distribution of the paraspinous muscles bilaterally and also into the lower thoracic paraspinous musculature, firm and tender, but without specific trigger points, without radiation of pain. The patient has good rotational motion of the lumbar spine, both laterally as well as extension and flexion without significant difficulty. No tenderness over the spinous processes, sacrum or sacroiliac regions. EXTREMITIES: Lower extremities show deep tendon reflexes 2+ in the patellar and tendo calcaneus tendons. Motor exam is 5 on a scale of 5 with right d orsiflexion, extension, quadriceps and hamstring flexion and 4/5 on the left. Peripheral pulses are 1+ posterior tibial. No peripheral edema is noted bilaterally. Lower extremities are warm and dry to touch, equal in color and appearance. Straight leg raise noted to be positive on the left at approximate 40 degrees decreased with knee flexion right side is negative. Gaenslen's and Kenneth's maneuvers are negative bilaterally. The patient is able to stand, stand on her toes without significant difficulty loss of balance, walks with a normal-appearing gait is not appear to favor the right or left lower extremity significantly is not use any assistive devices to ambulate. SKIN: Shows warm and dry, good turgor. No edema. No sores, rashes or bruising throughout. IMPRESSION: Impression: 40-year-old female with approximate 7-month history increasing pain low back left lower extremity and radicular fashion MRI scan lumbar spine as noted Status post chiropractory therapy and exercise without significant reduction in pain. Plan: Options were discussed with the patient including conservative medical management continued physical therapies and interventional techniques. Patient elects interventional techniques. We discussed a lumbar epidural steroid injections description as well as anatomical models to describe the procedure. Risks were discussed including but not limited to: Bleeding, infection, possibility of epidural hematoma and subsequent neurological compromise, dural puncture, headaches, spinal cord and/or nerve damage, side effects of steroid medication, and poor results regarding pain control. Patient understands and wished to proceed. Patient will return to clinic in approximate 2 weeks for follow-up, was counseled as return appointment, activity level, and side effect to be aware of. Procedure is lumbar epidural steroid injection under local anesthetic using sterile prep and drape at the L3-4 level using C-arm fluoroscopic guidance in both AP and lateral views medications injected is 120 mg Depo-Medrol +10mL preservative-free normal saline and 2 mL contrast- condition at discharge is stable patient tolerated procedure well had no complications. THONG LOZADA MD Jun 07, 2021 12:59
--- NOTE | 2021-06-07 13:00 | PDOC4 ---
Procedure Note: ICD 10 Code: ICD 10 Code: M54.16 M51.36 M 48.06 Procedure Note: Patient was consented for lumbar epidural steroid injection with fluoroscopic guidance. Risks were discussed including but not limited to: Bleeding, infection, possibility of epidural hematoma and subsequent neurological compromise, dural puncture, headaches, spinal cord and/or nerve damage, side effects of steroid medication, and poor results regarding pain control. Patient understands and wished to proceed. Procedure is lumbar epidural steroid injection under local anesthetic using neetu rile prep and drape at the L3-4 level using C-arm fluoroscopic guidance in both AP and lateral views medications injected is 120 mg Depo-Medrol +10mL preservative-free normal saline and 2 mL contrast- condition at discharge is stable patient tolerated procedure well had no complications. THONG LOZADA MD Jun 07, 2021 13:00
== END | disposition home or self-care (01) ==
LOC: PNCL 08:24
PROVIDERS: ATTEND Anesthesiology
DX: M51.16 Intervertebral disc disorders with radiculopathy, lumbar region (principal); M48.061 Spinal stenosis, lumbar region without neurogenic claudication; M79.605 Pain in left leg; J45.909 Unspecified asthma, uncomplicated; Z98.51 Tubal ligation status; Z98.890 Other specified postprocedural states; Z79.899 Other long term (current) drug therapy; Z72.89 Other problems related to lifestyle; Z88.1 Allergy status to other antibiotic agents; Z88.8 Allergy status to other drugs, medicaments and biological substances
CPT/HCPCS: 62323; J1030; J1040; Q9965

== ENCOUNTER → 2021-06-25 | Outpatient (CLI) | payer BC ==
[~2021-06-25] MED LIST changes: -MOME17SP NS; +MOME17SP5 NS
--- NOTE | 2021-06-25 09:00 | PDOC ---
Progress Note - Pain Clinic Date of Service: DOS: DATE: 06/25/21 TIME: 08:57 Diagnosis: Dx: Lumbar radiculopathy with lumbar degenerative disease and lumbar spinal stenosis History or Present Illness: HPI: 40-year-old female returns for follow-up status post lumbar epidural steroid injection June 10, 2021. Patient did very well with about it 50% improvement overall now increasing pain the low back and the left lower extremity some on the right now as well which is new for her as well as radiating to the left anterior thigh anteromedial thigh medial lower leg medial calf as well as into the back of the knee patient reports it is a 10 on scale 10 is worse over the past week 9 on average 8 its least is an 8 today patient reports aching sharp dull tight shooting burning stabbing radiating can be constant severe worse with walking standing patient works nights and just got off of her working shift this morning with some significant pain after standing for most of the last 8 hours patient reports that is better with walking and standing as well as sleeping better but the pain still returning fairly significantly in the low back and the left lower extremity greater than right but present on the right as well in the back and right anterior thigh. Patient reports no bowel or bladder incontinence. Physical Exam: VS: Blood pressure is 130/76 pulse 96 respirations 18 temperature 98.6 F height 5 feet 2 inches weight is 171 pounds PE: PHYSICAL EXAMINATION: GENERAL: The patient is awake, alert, oriented, appropriate, very pleasant in demeanor HEENT: Shows normocephalic, atraumatic. Extraocular movements are intact and symmetrical. Oral cavity: Mucous membranes moist and pink. Dentition is intact. NECK: Shows anterior throat supple without palpable lymphadenopathy noted. Swallow reflex symmetrical. CHEST: Shows normal on inspection. Breath sounds are clear bilaterally. HEART: Shows S1, S2 clear. No murmurs auscultated. ABDOMEN: Soft, nontender, nondistended or rhonchi, obese. No palpable organomegaly is noted. BACK: Shows spine grossly in the midline. Normal-appearing cervical lordotic curvature. There is slightly increased thoracic kyphosis, some flattening of the lumbar lordotic curvature. Lumbar paraspinous muscles show symmetrical on inspection, on palpation shows some moderate tenderness diffusely throughout the upper, middle and lower distribution of the paraspinous muscles without specific trigger points, without radiation of pain. The patient has good rotational m otion of the lumbar spine, both laterally as well as extension and flexion without significant difficulty. EXTREMITIES: Lower extremities show deep tendon reflexes 2+ in the patellar and tendo calcaneus tendons. Motor exam is 5 on a scale of 5 with right dorsiflexion, extension, quadriceps and hamstring flexion and 4/5 on the left. Peripheral pulses are 1+ posterior tibial. No peripheral edema is noted bilaterally. Lower extremities are warm and dry to touch, equal in color and appearance. SKIN: Shows warm and dry, good turgor. No edema. No sores, rashes or bruising throughout. Procedure: Procedure: Options discussed with the patient. Patient chart was reviewed as her current medication regimen updated current review of systems updated today as well. We will proceed with a lumbar epidural steroid ejections today with fluoroscopic guidance. Risks were discussed including but not limited to: Bleeding, infection, possibility of epidural hematoma and subsequent neurological compromise, dural puncture, headaches, spinal cord and/or nerve damage, side effects of steroid medication, and poor results regarding pain control. Patient understands and wished to proceed. Patient will return to the clinic in approximate 2 weeks for follow-up, was counseled as to return appointment, activity level, and side effect to be aware of. Also, will add new medication of gabapentin 100 mg nightly. Patient was given instructions well side effects to be aware of with the medication. Medication Injected: Med Injected: Procedure is lumbar epidural steroid injection under local anesthetic using sterile prep and drape at the L3-4 level using C-arm fluoroscopic guidance in both AP and lateral views medications injected is 120 mg Depo-Medrol +10mL preservative-free normal saline and 2 mL contrast- condition at discharge is stable patient tolerated procedure well had no complications. Condition at Discharge: Condition at Discharge: Condition at discharge stable, patient tolerated the procedure well and had no complications. THONG LOZADA MD Jun 25, 2021 09:00
--- NOTE | 2021-06-25 09:02 | PDOC4 ---
Procedure Note: ICD 10 Code: ICD 10 Code: M54.16 M51.36 M4 8.06 Procedure Note: Patient was consented for lumbar epidural steroid injection with fluoroscopic guidance. Risks were discussed including but not limited to: Bleeding, infection, possibility of epidural hematoma and subsequent neurological compromise, dural puncture, headaches, spinal cord and/or nerve damage, side effects of steroid medication, and poor results regarding pain control. Patient understands and wished to proceed. Procedure is lumbar epidural steroid injection under local anesthetic using neetu rile prep and drape at the L3-4 level using C-arm fluoroscopic guidance in both AP and lateral views medications injected is 120 mg Depo-Medrol +10mL preservative-free normal saline and 2 mL contrast- condition at discharge is stable patient tolerated procedure well had no complications. THONG LOZADA MD Jun 25, 2021 09:02
== END | disposition home or self-care (01) ==
LOC: PNCL 08:23
PROVIDERS: ATTEND Anesthesiology
DX: M51.16 Intervertebral disc disorders with radiculopathy, lumbar region (principal); M48.061 Spinal stenosis, lumbar region without neurogenic claudication; J45.909 Unspecified asthma, uncomplicated; F32.9 Major depressive disorder, single episode, unspecified; Z79.899 Other long term (current) drug therapy; Z98.51 Tubal ligation status; Z98.890 Other specified postprocedural states; Z72.89 Other problems related to lifestyle; Z88.1 Allergy status to other antibiotic agents; Z88.8 Allergy status to other drugs, medicaments and biological substances
CPT/HCPCS: 62323; J1030; J1040; Q9965

== ENCOUNTER 2021-07-27 13:05 | Emergency (ER) | payer BC ==
[~2021-07-27] VITALS: Ht 157.5 cm; Wt 77.9 kg
[~2021-07-27 13:05] MED LIST changes: -IOHEXOL 180 MG/ML 10 ML VIAL. ONE; -methylPREDNISolone ACETATE 40 MG/ML VIAL. ONE; -methylPREDNISolone ACETATE 80 MG/ML VIAL. ONE
[2021-07-27] MEDS ORDERED: IV NORMAL SALINE 1000ML BAG 1,000 ML IV ONE (14:00)
[2021-07-27] MEDS ORDERED: KETOROLAC 30 MG/ML VIAL. IVP ONE (14:00)
[2021-07-27] MEDS ORDERED: diphenhydrAMINE 50 MG/ML VIAL IVP ONE (14:00)
[2021-07-27] MEDS ORDERED: PROCHLORPERAZINE 10 MG/2 ML VIAL. IV ONE (14:00)
[2021-07-27 14:03] LABS: BILIRUBIN,URINE NEGATIVE (NEG); CLARITY,URINE CLEAR; COLOR,URINE YELLOW; NITRITE,URINE NEGATIVE (NEG); PH,URINE 7.5 (<5.0-8.0); PROTEIN,URINE NEGATIVE (NEG-TRACE); UROBILINOGEN,URINE 0.2 mg/dL (0.2 mg/dL)
[2021-07-27 14:23] LABS: BACTERIA,URINE FEW /HPF (0-FEW); RBC,URINE 20-40 /HPF (0-2); WBC,URINE OCC /HPF (0-4)
[2021-07-27 14:24] LABS: HYALINE CASTS, URINE OCCASIONAL /HPF
[2021-07-27 14:29] LABS: WAXY CASTS,URINE OCCASIONAL /HPF
[2021-07-27 14:31] LABS: AMORPHOUS SEDIMENT,UR PRESENT /HPF
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
[2021-07-27 16:43] VITALS: BP 114/75
[2021-07-27] MEDS ORDERED: OXYC1TAB15 PO (16:44)
[2021-07-27] MEDS ORDERED: TIZA4TAB8 PO (16:44)
== END 2021-07-27 16:55 | disposition home or self-care (01) ==
LOC: ER 13:05
DX: S39.012D Strain of muscle, fascia and tendon of lower back, subsequent encounter (principal); R51.9 Headache, unspecified; M54.2 Cervicalgia; J45.909 Unspecified asthma, uncomplicated; V49.49XA Driver injured in collision with other motor vehicles in traffic accident, initial encounter; Y93.89 Activity, other specified; Y92.488 Other paved roadways as the place of occurrence of the external cause; Y99.8 Other external cause status
CPT/HCPCS: 70450; 72125; 72131; 81001; 81025; 96361; 96374; 96375; 99284; J0780; J1200; J1885; J7030

== ENCOUNTER → 2021-08-02 | Outpatient (CLI) | payer BC ==
[2021-07-27 16:43] VITALS: BP 114/75
[~2021-08-02] MED LIST changes: +OXYC1TAB15 PO; +TIZA4TAB8 PO
[2021-08-02 15:48] LABS: BASO % 1 % (0-3); EOS % 1 % (0-3); HEMATOCRIT 35.5 % (36.0-47.0); LYMPH # 1.8 x10^3/uL (1.0-4.8); LYMPH % 29 % (24-48); MEAN CORPUSCULAR HEMOGLOBIN 28 pg (25-35); MEAN CORPUSCULAR HGB CONC 34 g/dL (31-37); MEAN CORPUSCULAR VOLUME 83 fL (79-100); MONO # 0.7 x10^3/uL (0.0-1.1); MONO % 11 % (0-9); NEUT # 3.8 x10^3/uL (1.8-7.7); NEUT % 60 % (31-73); PLATELET COUNT 231 x10^3/uL (140-400); RED BLOOD COUNT 4.29 x10^6/uL (3.50-5.40); RED CELL DISTRIBUTION WIDTH 13.8 % (11.5-14.5); WHITE BLOOD COUNT 6.4 x10^3/uL (4.0-11.0)
[2021-08-02 16:16] LABS: ALBUMIN 3.2 g/dL (3.4-5.0); ALBUMIN/GLOBULIN RATIO 0.7 (1.0-1.7); CALCIUM 8.4 mg/dL (8.5-10.1); CREATININE 0.8 mg/dL (0.6-1.0); GFR 79.9; POTASSIUM 4.1 mmol/L (3.5-5.1); TOTAL BILIRUBIN 0.3 mg/dL (0.2-1.0); TOTAL PROTEIN 7.8 g/dL (6.4-8.2)
--- NOTE | 2021-08-07 11:04 | HP ---
DATE OF SERVICE: 08/07/2021 ADMIT DATE: 08/02/2021 PREOP HISTORY AND PHYSICAL HISTORY OF PRESENT ILLNESS: The patient is a pleasant 40-year-old who is having difficulty with back pain along with pain, which can radiate into her left anterior thigh and hip. There is an occasional back pain on the right side. She rates her pain as 8/10. Leaning forward or lifting her leg increases her pain. A heating pad can help some. She is taking gabapentin, which does help her sleep. She is taking hydrocodone as needed. She has had 2 lumbar epidural steroid injections without benefit. CURRENT MEDICATIONS: Gabapentin, Breo, sertraline, Singulair, hydrocodone. PAST MEDICAL HISTORY: Anemia, asthma, headaches. PAST SURGICAL HISTORY: Meniscus tear, , tubal ligation, left foot surgery. FAMILY HISTORY: Diabetes, headaches. SOCIAL HISTORY: Employed at [employer]. . Does not smoke. Drinks alcohol 1-2 times per month. ALLERGIES: CELEXA AND AZITHROMYCIN. REVIEW OF SYSTEMS: A 12-point review of systems was performed and is noncontributory except that mentioned above. PHYSICAL EXAMINATION: GENERAL: Alert, pleasant, in no acute distress. HEENT: Head is normocephalic, atraumatic. SKIN: Warm and dry. MUSCULOSKELETAL: Lumbar paraspinal muscle bulk is normal, restricted range of motion of the lumbar spine, [id number] tenderness of the lower lumbar spine on palpation, normal range of motion of the lower extremities bilaterally. EXTREMITIES: No clubbing, cyanosis or edema. NEUROLOGIC: Alert and oriented x 3. Strength is 5/5 in the lower extremities bilaterally. Sensory was intact to light touch in the lower extremities bilaterally except for decreased sensation in the left anterior thigh, reflexes were present and symmetric in the lower extremities bilaterally, negative straight leg raising, normal gait. IMAGING: I reviewed her MRI scan of the lumbar spine. At L2-L3, there is a moderately large left foraminal disc protrusion. There is also disc bulging which narrows the foramen on the left at L3-L4. ASSESSMENT AND PLAN: I reviewed her films and I feel like the problem at L2-L3 is the symptomatic level. I recommended a microdiscectomy at L2-L3 on the left. I explained that she may require further surgery to decompress L3-L4, but I was reluctant to unroof the foramen at both levels because of the potential for destabilizing her spine and causing problems with chronic back pain, she understands. She understands the risk of surgery and the technique and the expected postoperative course. She would like to go ahead. PRERNA/LEONOR DR: Chely TID: [id number]
== END ==
LOC: EDSTATUS 14:00 → SURG 14:23
PROVIDERS: ATTEND Neurological Surgery
DX: Z01.812 Encounter for preprocedural laboratory examination (principal); M51.16 Intervertebral disc disorders with radiculopathy, lumbar region
CPT/HCPCS: 36415; 80053; 85025; 87641

== ENCOUNTER 2021-08-08 10:37 | Day surgery (SDC) | payer BC ==
[2021-08-02 15:06] VITALS: BP 150/71
[~2021-08-08] VITALS: Ht 157.5 cm; Wt 79.4 kg
[~2021-08-08 10:37] MED LIST changes: +BUPIVACAINE-EPI 0.5% 30 ML VIAL KIT. ONE; +DEXAMETHASONE SOD PHOS 4 MG/ML VIAL ONE; +GELATIN SPONGE SIZE 100. ONE; +GLYCOPYRROLATE 1 MG/5 ML VIAL. ONE; +HYDROmorphone 2 MG/ML INJ. IVP PRN; +IV RINGERS,LACTATED 1000ML 1,000 ML IV SCH; +KETOROLAC 60 MG/2 ML VIAL. ONE; +LIDOCAINE 2% PF 5 ML VIAL. ONE; +MIDAZOLAM HCL/PF 2 MG/2 ML VIAL. ONE; +ONDANSETRON PF 4 MG/2 ML VIAL. ONE; +PHENYLEPHRINE in 0.9% NACL PF 1 MG/10 ML SYRINGE. IV ONE; +PROPOFOL 10 MG/ML (20ML) VIAL. IV ONE; +PROPOFOL 50 ML IV ONE; +REMIFENTANIL 2 MG VIAL. IV ONE; +SUCCINYLCHOLINE 200 MG/10 ML VIAL. ONE; +THROMBIN TOPICAL 20,000 UNIT SPRAY.SYRN KIT TP ONE; +ceFAZolin SODIUM 1 GM in IV NORMAL SALINE 1000ML BAG 1,000 ML IRR ONE; +fentaNYL PF VIAL 100 MCG/2 ML VIAL IVP PRN; +fentaNYL PF VIAL 100 MCG/2 ML VIAL ONE
[2021-08-08 11:18] VITALS: BP 116/63
[2021-08-08] MEDS ORDERED: HYDR-2765 PO (11:26)
[2021-08-08] MEDS ORDERED: PROPOFOL 50 ML IV ONE (11:39)
[2021-08-08] MEDS ORDERED: SCOPOLAMINE 1.5MG PATCH. TD ONE (12:00)
--- NOTE | 2021-08-08 15:29 | DISCH ---
DISCHARGE INSTRUCTIONS Condition on Discharge Condition on Discharge: Stable Activity After Discharge Activity Instructions for Disc: Activity as tolerated, Avoid exertion Other activity instructions: no driving Bathing Instructions: Shower-keep dressing dry, No Tub Bath until see Lifting Instructions after Dis: No heavy lifting, No pulling or pushing, Do not lift >10 pounds Weight Bearing Status after Di: As tolerated Diet after Discharge Diet after Discharge: Regular Additional Diet Restrictions: resume home diet Wound Incision Care Wound/Incision Care: Ice to area for comfort, Keep wound/cast CDI, Change dressing Other wound/incision instructi: may remove dressing in 48 hours if dry then may shower, no soaking Contacting the after DC Call your doctor for: Concerns you may have Follow-Up Follow up with: Dr. Walls's nurse in 2 weeks [phone] CARMEN WALLS MD Aug 08, 2021 15:29
[2021-08-08] MEDS ORDERED: PROCHLORPERAZINE 10 MG/2 ML VIAL. ONE (15:42)
[2021-08-08] MEDS ORDERED: fentaNYL PF VIAL 100 MCG/2 ML VIAL ONE (15:43)
[2021-08-08] MEDS: PROCHLORPERAZINE 10 MG/2 ML VIAL. IVP PRN ×2 (15:50→16:39)
[2021-08-08] MEDS: fentaNYL PF VIAL 100 MCG/2 ML VIAL IVP PRN ×2 (15:50→16:15)
[2021-08-08] MEDS ORDERED: MORPHINE SULFATE 2 MG/ML INJ. ONE (16:33)
[2021-08-08] MEDS: MORPHINE SULFATE 2 MG/ML INJ. IVP PRN ×2 (16:38→16:51)
[2021-08-08] MEDS ORDERED: HYDROcodone/APAP 7.5/325MG 1 TAB TABLET PO ONE (17:00)
[2021-08-08 17:15] VITALS: BP 118/57
--- NOTE | 2021-08-08 19:10 | OP ---
DATE OF SURGERY: 08/08/2021 PREOPERATIVE DIAGNOSES: Lateral recess and foraminal disc herniation at L2-3, left with left lumbar radiculopathy. POSTOPERATIVE DIAGNOSES: Lateral recess and foraminal disc herniation at L2-3, left with left lumbar radiculopathy. OPERATION PERFORMED: Left hemilaminotomy and lateral transforaminal exposure with microdiscectomy and removal of foraminal disc herniation, L2-3. The operation was done with EMG monitoring, SSEP monitoring, fluoroscopy, microscopic dissection. SURGEON: Ruslan Carey M.D. PACKAGE SEALER: BRIDGETTE Paul; assisted with the surgery. She assisted with the exposure, the microdiscectomy as well as the closure. OPERATIVE INDICATIONS: The patient is a pleasant 40-year-old who developed intractable back and left leg pain and was found to have a number of abnormalities of her spine, but primarily at L2-3 and within the foramen, there was a moderately large disc herniation, which completely filled the foramen and compressed the L2 root. She failed conservative measures and I recommended lumbar microsurgery. I discussed the surgery, the risks, the technique with her in detail. I explained that with her other abnormalities that she may require further surgery in order to completely recover from the problems. She understood and she wished to go ahead. DESCRIPTION OF PROCEDURE: Following general endotracheal anesthesia, the patient was positioned prone on the Josue table. Lumbar region was prepped and draped in standard fashion. RAF hose and AV impulse boots were applied for DVT prophylaxis. The microscope was draped, fluoroscopy was draped and brought into the field. Monitoring was established. Ancef 2 grams given less than one hour prior to initiation of surgery. Using fluoroscopic guidance, an incision was made directly over the L2-3 interspace and I dissected through the skin and subcutaneous tissue. I reflected the paraspinal muscles and brought in the high speed air drill under the microscope. Using microscopic technique with the drill, I drilled a generous hemilaminotomy. I then drilled laterally performing a transforaminal exposure. I worked superiorly until I could well visualize the L2 nerve root as it rounded the pedicle and moved laterally and I also visualized in the L3 root and I did perform a partial foraminotomy. I retracted the root medially. There was a bulging disc, which was superior and lateral to the disc space representing an extruded subligamentous fragment. I incised the ligament and there was a spontaneous egress of a significant quantity of disc material under some pressure. I enlarged the opening and I worked and gently removed disc fragments from this location and followed the nerve root out laterally and removed further disc from within the foramen. I then went into the disc space and performed discectomy with pituitary rongeurs and decompressed the disc space. At this point the region was very well decompressed. Hemostasis was excellent. I irrigated copiously and explored carefully and assured myself of no retained fragments. I removed the retractor, obtained hemostasis in the muscle and I irrigated and closed the wound in layers with absorbable suture and skin was closed with 4-0 subcuticular stitch. I felt the surgery went very well. YOVANY/DARRON DR: Nnamdi TID: [id number] NILSON
--- NOTE | 2021-08-14 09:08 | PATHOLOGY ---
[facility] Accession Number: [id number] . 01 Material submitted: . vertebral column - LUMBAR DISC AND DECOMPRESSION . 01 Clinical history: . LUMBAR HERNIATED DISC WITH RADICULOPATHY LUMBAR MICRODISCECTOMY L2-3 . 02 Diagnosis: Segments of fibrocartilaginous, adipose, and skeletal muscle tissue and bone, lumbar disc and decompression: - Degenerative changes of fibrocartilaginous tissue. (JPM:pit; 08/13/2021) [facility] 08/13/2021 1727 Local . 02 Comment: There is no evidence of an acute inflammatory process or malignancy. (JPM:pit; 08/13/2021) . 02 Electronically signed: . Blayne Sun MD, Pathologist NPI- [id number] . 01 Gross description: . The specimen is received in formalin, labeled "Janiya Workman, lumbar disc and decompression". The site is further designated on the requisition in the operative procedure as "L2-3". Received are multiple segments of pale gagnon fibrous tissue admixed with minute fragments of bone measuring 4.8 x 4.7 x 0.9 cm in aggregate dimensions. The specimen is submitted representatively in cassette A1, following light decalcification. (CAA; 08/10/2021) QAC/QAC 08/10/2021 1010 Local . 02 Pathologist provided ICD-10: M51.36 . 02 CPT . 013651, [id number] Specimen Comment: A courtesy copy of this report has been sent to [phone], [phone] Specimen Comment: 2230 Specimen Comment: Report sent to / DR BLAKE Specimen Comment: A duplicate report has been generated due to demographic updates. Performed at: 01 [facility] [id number] [facility] [address], [place], [place] [id number] MD Beto Giles MD Phone: [phone] Performed at: [facility] [address], [place] [id number] MD Blayne Sun MD Phone: [phone]
--- NOTE | 2021-08-14 12:58 | HP ---
DATE OF SERVICE: 08/07/2021 ADMIT DATE: 08/08/2021 PREOP HISTORY AND PHYSICAL HISTORY OF PRESENT ILLNESS: The patient is a pleasant 40-year-old who is having difficulty with back pain along with pain, which can radiate into her left anterior thigh and hip. There is an occasional back pain on the right side. She rates her pain as 8/10. Leaning forward or lifting her leg increases her pain. A heating pad can help some. She is taking gabapentin, which does help her sleep. She is taking hydrocodone as needed. She has had 2 lumbar epidural steroid injections without benefit. CURRENT MEDICATIONS: Gabapentin, Breo, sertraline, Singulair, hydrocodone. PAST MEDICAL HISTORY: Anemia, asthma, headaches. PAST SURGICAL HISTORY: Meniscus tear, , tubal ligation, left foot surgery. FAMILY HISTORY: Diabetes, headaches. SOCIAL HISTORY: Employed at [employer]. . Does not smoke. Drinks alcohol 1-2 times per month. ALLERGIES: CELEXA AND AZITHROMYCIN. REVIEW OF SYSTEMS: A 12-point review of systems was performed and is noncontributory except that mentioned above. PHYSICAL EXAMINATION: GENERAL: Alert, pleasant, in no acute distress. HEENT: Head is normocephalic, atraumatic. SKIN: Warm and dry. MUSCULOSKELETAL: Lumbar paraspinal muscle bulk is normal, restricted range of motion of the lumbar spine, [id number] tenderness of the lower lumbar spine on palpation, normal range of motion of the lower extremities bilaterally. EXTREMITIES: No clubbing, cyanosis or edema. NEUROLOGIC: Alert and oriented x 3. Strength is 5/5 in the lower extremities bilaterally. Sensory was intact to light touch in the lower extremities bilaterally except for decreased sensation in the left anterior thigh, reflexes were present and symmetric in the lower extremities bilaterally, negative straight leg raising, normal gait. IMAGING: I reviewed her MRI scan of the lumbar spine. At L2-L3, there is a moderately large left foraminal disc protrusion. There is also disc bulging which narrows the foramen on the left at L3-L4. ASSESSMENT AND PLAN: I reviewed her films and I feel like the problem at L2-L3 is the symptomatic level. I recommended a microdiscectomy at L2-L3 on the left. I explained that she may require further surgery to decompress L3-L4, but I was reluctant to unroof the foramen at both levels because of the potential for destabilizing her spine and causing problems with chronic back pain, she understands. She understands the risk of surgery and the technique and the expected postoperative course. She would like to go ahead. PRERNA/LEONOR DR: Chely TID: [id number]
== END 2021-08-08 17:42 | disposition home or self-care (01) ==
LOC: SURG 10:37
PROVIDERS: ATTEND Neurological Surgery
DX: M51.16 Intervertebral disc disorders with radiculopathy, lumbar region (principal); J45.909 Unspecified asthma, uncomplicated; D64.9 Anemia, unspecified; F32.9 Major depressive disorder, single episode, unspecified; Z98.51 Tubal ligation status; Z98.890 Other specified postprocedural states; Z79.899 Other long term (current) drug therapy; Z83.3 Family history of diabetes mellitus; Z88.1 Allergy status to other antibiotic agents; Z88.8 Allergy status to other drugs, medicaments and biological substances; Z72.89 Other problems related to lifestyle
CPT/HCPCS: 63030; 81025; 88304; 88311; 97116; 97162; 97530; A4364; A4556; A4930; A6254; A6258; J0330; J0690; J0780; J1100; J1885; J2250; J2270; J2370; J2405; J2704; J3010; J3490; J7030; 76000; A4222

== ENCOUNTER → 2021-12-06 | Outpatient (CLI) | payer BC ==
[~2021-12-06] MED LIST changes: -BUPIVACAINE-EPI 0.5% 30 ML VIAL KIT. ONE; +DEXAMETHASONE PRES.FREE 10 MG/ML VIAL. ONE; -DEXAMETHASONE SOD PHOS 4 MG/ML VIAL ONE; +GABA300C18 PO; -GELATIN SPONGE SIZE 100. ONE; -GLYCOPYRROLATE 1 MG/5 ML VIAL. ONE; -HYDROmorphone 2 MG/ML INJ. IVP PRN; +IOHEXOL 180 MG/ML 10 ML VIAL. ONE; -IV RINGERS,LACTATED 1000ML 1,000 ML IV SCH; -KETOROLAC 60 MG/2 ML VIAL. ONE; -LIDOCAINE 2% PF 5 ML VIAL. ONE; -MIDAZOLAM HCL/PF 2 MG/2 ML VIAL. ONE; -ONDANSETRON PF 4 MG/2 ML VIAL. ONE; -PHENYLEPHRINE in 0.9% NACL PF 1 MG/10 ML SYRINGE. IV ONE; -PROPOFOL 10 MG/ML (20ML) VIAL. IV ONE; -PROPOFOL 50 ML IV ONE; -REMIFENTANIL 2 MG VIAL. IV ONE; -SUCCINYLCHOLINE 200 MG/10 ML VIAL. ONE; -THROMBIN TOPICAL 20,000 UNIT SPRAY.SYRN KIT TP ONE; -ceFAZolin SODIUM 1 GM in IV NORMAL SALINE 1000ML BAG 1,000 ML IRR ONE; -fentaNYL PF VIAL 100 MCG/2 ML VIAL IVP PRN; -fentaNYL PF VIAL 100 MCG/2 ML VIAL ONE
--- NOTE | 2021-12-06 12:46 | PDOC ---
Progress Note - Pain Clinic Date of Service: DOS: DATE: 12/06/21 TIME: 12:40 Diagnosis: Dx: Lumbar radiculopathy with lumbar degenerative disease and lumbar spinal stenosis History or Present Illness: HPI: 41-year-old female returns for follow-up status post lumbar epidural steroid injection last seen June 25, 2021 patient did very well with about a 75% improvement initially for about 2 months patient reports the pain returned though fairly quickly and for the past several months is becoming much more noticeable in the low back and the left lower extremity patient reports in the posterior gluteus lateral thigh anterior thigh medial thigh medial groin on the left side as well as the medial knee patient reports some in the low leg as well mostly medially and posteriorly in the calf patient reports that sharp in the knee and the leg aching and dull in the back tight shooting in her left leg tingling as well patient did have an MRI scan which we went over her results with her today dated November 13, 2021 showing postsurgical changes at L2-3 with left-sided hemilaminectomy and moderate to advanced stenosis of the L2-3 neuroforamen on the left L3-4 L4-5 showing spondylosis and spondylolisthesis resulting in spinal canal compression of the thecal sac and moderate bilateral neuroforaminal stenosis as well. Patient reports pain returning in the left lower extremity without loss of function but significant fatigability which is much more noticeable than prior to her last visit. Patient reports no bowel or bladder incontinence. Physical Exam: VS: Blood pressure is 121/77 pulse 71 respirations 18 temperature 98.2 F weight is 171 pounds. PE: PHYSICAL EXAMINATION: GENERAL: The patient is awake, alert, oriented, appropriate, very pleasant in demeanor HEENT: Shows normocephalic, atraumatic. Extraocular movements are intact and symmetrical. Oral cavity: Mucous membranes moist and pink. Dentition is intact. NECK: Shows anterior throat supple without palpable lymphadenopathy noted. Swallow reflex symmetrical. CHEST: Shows normal on inspection. Breath sounds are clear bilaterally, no rales or rhonchi auscultated. HEART: Shows S1, S2 clear. No murmurs auscultated. ABDOMEN: Soft, nontender, nondistended. No palpable organomegaly is noted. BACK: Shows spine grossly in the midline. Normal-appearing cervical lordotic curvature. There is slightly increased thoracic kyphosis, some minor flattening of the lumbar lordotic curvature, with well-healed midline surgical scar noted. Lumbar paraspinous muscles show symmetrical on inspection, on palpation shows some moderate tenderness diffusely throughout the upper, middle and lower distribution of the paraspinous muscles, but without specific trigger points, without radiation of pain. The patient has good rotational motion of the lumbar spine, both laterally as well as extension and flexion without significant difficulty. No tenderness over the spinous processes, sacrum or sacroiliac regions. EXTREMITIES: Lower extremities show deep tendon reflexes deep in the patellar and tendo calcaneus tendons. Motor exam is 5 on a scale of 5 with right dorsiflexion, extension, quadriceps and hamstring flexion and 4/5 on the left. Peripheral pulses are 1+ posterior tibial. No peripheral edema is noted bi laterally. Lower extremities are warm and dry to touch, equal in color and appearance. SKIN: Shows warm and dry, good turgor. No edema. No sores, rashes or bruising throughout. Procedure: Procedure: Options were discussed with patient. Patient's old chart was reviewed as her current medication regimen updated current review of systems updated today as well. We will proceed with a lumbar epidural steroid injections today with fluoroscopic guidance. Risks were discussed including but not limited to: Bleeding, infection, possibility of epidural hematoma and subsequent neurological compromise, dural puncture, headaches, spinal cord and/or nerve damage, side effects of steroid medication, and poor results regarding pain con trol. Patient understands and wished to proceed. Patient return to clinic in approximate 2 weeks for follow-up, was counseled as to return appointment, activity level, and side effects to be aware of. Medication Injected: Med Injected: Procedure is lumbar epidural steroid injection under local anesthetic using sterile prep and drape at the L3-4 level using C-arm fluoroscopic guidance in both AP and lateral views medications injected is 20 mg dexamethasone +10mL preservative-free normal saline and 2 mL contrast- condition at discharge is stable patient tolerated procedure well had no complications. Condition at Discharge: Condition at Discharge: Condition at discharge is stable, patient tolerated the procedure well and had no complications. THONG LOZADA MD December 06, 2021 12:46
--- NOTE | 2021-12-06 12:47 | PDOC4 ---
Procedure Note: ICD 10 Code: ICD 10 Code: M54.16 M51.36 M48.06 M96.1 Procedure Note: Patient was consented for lumbar epidural steroid injection with fluoroscopic guidance. Risks were discussed including but not limited to: Bleeding, infection, possibility of epidural hematoma and subsequent neurological compromise, dural puncture, headaches, spinal cord and/or nerve damage, side effects of steroid medication, and poor results regarding pain control. Patient understands and wished to proceed. Procedure is lumbar epidural steroid injection under local anesthetic using sterile prep and drape at the L3-4 level using C-arm fluoroscopic guidance in both AP and lateral views medications injected is 20 mg dexamethasone +10mL preservative-free normal saline and 2 mL contrast- condition at discharge is stable patient tolerated procedure well had no complications. THONG LOZADA MD December 06, 2021 12:47
== END | disposition home or self-care (01) ==
LOC: PNCL 11:12
PROVIDERS: ATTEND Anesthesiology
DX: M51.16 Intervertebral disc disorders with radiculopathy, lumbar region (principal); M48.061 Spinal stenosis, lumbar region without neurogenic claudication; M96.1 Postlaminectomy syndrome, not elsewhere classified; J45.909 Unspecified asthma, uncomplicated; F32.9 Major depressive disorder, single episode, unspecified; Z79.899 Other long term (current) drug therapy; Z98.890 Other specified postprocedural states; Z72.89 Other problems related to lifestyle; Z88.1 Allergy status to other antibiotic agents; Z88.8 Allergy status to other drugs, medicaments and biological substances
CPT/HCPCS: 62323; J1100; Q9965

== ENCOUNTER → 2021-12-20 | Outpatient (CLI) | payer BC ==
[~2021-12-20] MED LIST changes: -DEXAMETHASONE PRES.FREE 10 MG/ML VIAL. ONE; -IOHEXOL 180 MG/ML 10 ML VIAL. ONE
--- NOTE | 2021-12-20 11:49 | PDOC ---
Progress Note - Pain Clinic Date of Service: DOS: DATE: 12/20/21 TIME: 11:44 Diagnosis: Dx: Lumbar radiculopathy with lumbar degenerative disease and lumbar spinal stenosis History or Present Illness: HPI: 41-year-old female returns for follow-up status post lumbar epidural steroid injection x1. Patient reports about 50% improvement but the pain is returning now in the low back and the left lower extremity posterior gluteus lateral thigh anterior thigh medial thigh medial groin and medial lower leg as well as the medial knee patient reports at first it was doing much better with increased activity doing walking activities household activities travel with greater ease and comfort sleeping better at night now it still waking her from sleep about once a night patient reports worse with walking and standing changing positions better with sitting or laying down. Patient rates the pain as a 10 on scale 10 is worse over the past week 8 on average 8 at its least and is an 8 today. Patient reports no new bowel or bladder incontinence no loss of motor function but significant fatigability of the left lower extremity with activity. Patient still taking naproxen twice daily as well as gabapentin twice daily. Physical Exam: VS: Blood pressure is 120/75 pulse 75 respirations 18 temperature 98.2 F height is 5 feet 2 inches PE: PHYSICAL EXAMINATION: GENERAL: The patient is awake, alert, oriented, appropriate, very pleasant in demeanor HEENT: Shows normocephalic, atraumatic. Extraocular movements are intact and symmetrical. Oral cavity: Mucous membranes moist and pink. Dentition is intact. NECK: Shows anterior throat supple without palpable lymphadenopathy noted. Swallow reflex symmetrical. CHEST: Shows normal on inspection. Breath sounds are clear bilaterally, no rales or rhonchi auscultated. HEART: Shows S1, S2 clear. No murmurs auscultated. ABDOMEN: Soft, nontender, nondistended. No palpable organomegaly is noted. BACK: Shows spine grossly in the midline. Normal-appearing cervical lordotic curvature. There is slightly increased thoracic kyphosis, some minor flattening of the lumbar lordotic curvature, with well-healed surgical scar in the midline. Lumbar paraspinous muscles show symmetrical on inspection, on palpation shows some moderate tenderness diffusely throughout the upper, middle and lower distribution of the paraspinous muscles, but without specific trigger points, without radiation of pain. The patient has good rotational motion of the lumbar spine, both laterally as well as extension and flexion without significant difficulty. No tenderness over the spinous processes, sacrum or sacroiliac regions. EXTREMITIES: Lower extremities show deep tendon reflexes 2+ in the patellar and tendo calcaneus tendons. Motor exam is 5 on a scale of 5 with right dorsiflexion, extension, quadriceps and hamstring flexion and 4/5 on the left. Peripheral pulses are 1+ posterior tibial. No peripheral edema is noted bilaterally. Lower extremities are warm and dry to touch, equal in color and appearance. SKIN: Shows warm and dry, good turgor. No edema. No sores, rashes or bruising throughout. Procedure: Procedure: Options discussed with the patient. Patient chart was reviewed as her current medication regimen updated current review of systems updated today as well. Patient with persistent radiculopathy and L3-4 dermatomal distribution on the left. We will prescribe new medication of Medrol Dosepak patient was given instructions well side effects aware with the medication. We will have patient return in approximate 2 weeks for lumbar epidural steroid injection, due to insu misael restrictions on 30 days between injections. Medication Injected: Med Injected: None Condition at Discharge: Condition at Discharge: Condition at discharge is stable. THONG LOZADA MD December 20, 2021 11:49
== END | disposition home or self-care (01) ==
LOC: PNCL 10:52
PROVIDERS: ATTEND Anesthesiology
DX: M51.16 Intervertebral disc disorders with radiculopathy, lumbar region (principal); M48.061 Spinal stenosis, lumbar region without neurogenic claudication; J45.909 Unspecified asthma, uncomplicated; F32.9 Major depressive disorder, single episode, unspecified; Z98.51 Tubal ligation status; Z79.899 Other long term (current) drug therapy; Z98.890 Other specified postprocedural states; Z88.1 Allergy status to other antibiotic agents; Z88.8 Allergy status to other drugs, medicaments and biological substances
CPT/HCPCS: 99212; G0463